=== PATIENT | female | born 1955 | race Asian ===

== ENCOUNTER 2017-03-30 21:50 | Emergency (ER) | payer OTHER, BC ==
[2017-03-31] MEDS: HYDROCODONE/APAP (5/325) TAB PO (00:52)
== END 2017-03-31 01:52 | disposition home or self-care (01) ==
LOC: FTE 21:50
DX: S16.1XXA Strain of muscle, fascia and tendon at neck level, initial encounter (principal); S20.219A Contusion of unspecified front wall of thorax, initial encounter; E11.9 Type 2 diabetes mellitus without complications; R42 Dizziness and giddiness; V49.40XA Driver injured in collision with unspecified motor vehicles in traffic accident, initial encounter
CPT/HCPCS: 71045; 72072; 73120; 93005; 99284-25